=== PATIENT | male | born 1940 | race Caucasian/White ===

== ENCOUNTER → 2017-07-05 | Outpatient (REF) | payer MEDICARE ==
[~2017-07-05] MED LIST: ALLO100T PO; ATEN25TA PO; ATEN50TA2 PO; Albuterol/Ipratropium NEB; BACL10TA PO; BACL10TA2 PO; BENA20TA8 PO; Docusate Sod/Senna PO; FOLI1TAB4 PO; FURO20TA2 PO; FURO40TA2 PO; GABA-279 PO; HEPA500020 SQ; HYDR-3713 PO; INDO25CA PO; INDO50CA PO; MILKSUS PO; NEUR300C PO; OXYC15TA66 PO; OXYC1TAB23 PO; PANT40TA2 PO; PERCOCET PO; POTA10CA PO; PROT1TAB2 PO; SUCR1SS PO; TENO1TAB4 PO; TUMS500C PO; Thiamine Hcl PO; VITMTA PO
[2017-07-05 17:45] LABS: FOLATE 16.7 NG/ML; VITAMIN B12 LEVEL 316 PG/ML
[2017-07-05 17:51] LABS: ALBUMIN 3.7 GM/DL (3.2-5.2); ALBUMIN/GLOBULIN RATIO 1.06 (1.00-1.93); ALKALINE PHOSPHATASE 98 U/L (45-117); ALT/SGPT 32 U/L (12-78); ANION GAP 10 MEQ/L (8-16); AST/SGOT 22 U/L (15-37); BILIRUBIN,TOTAL 0.7 MG/DL (0.2-1.0); BLOOD UREA NITROGEN 16 MG/DL (7-18); CALCIUM LEVEL 8.9 MG/DL (8.8-10.2); CARBON DIOXIDE LEVEL 24 MEQ/L (21-32); CHLORIDE LEVEL 107 MEQ/L (98-107); CHOLESTEROL LEVEL 140 MG/DL (<200); CREATININE FOR GFR 0.87 MG/DL (0.70-1.30); FREE T4 0.91 NG/DL (0.76-1.46); GLOMERULAR FILTRATION RATE > 60.0 (>42); GLUCOSE, FASTING 97 MG/DL (83-110); MAGNESIUM LEVEL 1.9 MG/DL (1.8-2.4); POTASSIUM SERUM 3.3 MEQ/L (3.5-5.1); SODIUM LEVEL 141 MEQ/L (136-145); TOTAL PROTEIN 7.2 GM/DL (6.4-8.2); TRIGLYCERIDES LEVEL 71 MG/DL (<150); URIC ACID 8.2 MG/DL (3.5-7.2)
[2017-07-05 18:02] LABS: BASO # 0.1 10^3/uL (0.0-0.2); BASO % 1.2 % (0.0-1.0); EOS # 0.1 10^3/uL (0.0-0.50); EOS % 1.5 % (0.0-3.0); IMMATURE GRANULOCYTE % 0.8 % (0-0); LYMPH # 1.6 10^3/uL (1.5-4.5); LYMPH % 26.9 % (24.0-44.0); MEAN CORPUSCULAR HEMOGLOBIN 35.1 pg (27.0-33.0); MEAN CORPUSCULAR HGB CONC 33.4 g/dl (32.0-36.5); MEAN CORPUSCULAR VOLUME 104.9 fl (80.0-96.0); MONO # 0.9 10^3/uL (0.0-0.8); MONO % 15.2 % (0.0-5.0); NEUTROPHILS # 3.3 10^3/uL (1.8-7.7); NEUTROPHILS % 54.4 % (36.0-66.0); PLATELET COUNT, AUTOMATED 245 10^3/uL (150-450); RED CELL DISTRIBUTION WIDTH 13.8 % (11.5-14.5)
[2017-07-05 18:07] LABS: ADD MORPHOLOGY? NO
[2017-07-06 20:02] LABS: CALCIUM OXALATE CRYSTALS SMALL
== END ==
LOC: M SFHCCAPE 09:27
PROVIDERS: ATTEND Physician Assistant
DX: E78.5 Hyperlipidemia, unspecified (principal); F10.10 Alcohol abuse, uncomplicated; M10.9 Gout, unspecified; I10 Essential (primary) hypertension; Z12.5 Encounter for screening for malignant neoplasm of prostate; E55.9 Vitamin D deficiency, unspecified
CPT/HCPCS: 80053; 80061; 81001; 82306; 82607; 82746; 83735; 84439; 84443; 84550; 85025; G0103; G0463

== ENCOUNTER → 2018-01-31 | Outpatient (REF) | payer MEDICARE ==
[2018-01-31 17:19] LABS: BASO # 0.1 10^3/uL (0.0-0.2); BASO % 1.2 % (0.0-1.0); EOS # 0.2 10^3/uL (0.0-0.50); EOS % 3.1 % (0.0-3.0); HEMATOCRIT 39.4 % (42.0-52.0); IMMATURE GRANULOCYTE % 0.9 % (0-3.0); LYMPH # 2.1 10^3/uL (1.5-4.5); LYMPH % 27.6 % (24.0-44.0); MEAN CORPUSCULAR HEMOGLOBIN 34.1 pg (27.0-33.0); MEAN CORPUSCULAR VOLUME 103.4 fl (80.0-96.0); MONO # 1.1 10^3/uL (0.0-0.8); MONO % 13.7 % (0.0-5.0); NEUTROPHILS # 4.1 10^3/uL (1.8-7.7); NEUTROPHILS % 53.5 % (36.0-66.0); PLATELET COUNT, AUTOMATED 287 10^3/uL (150-450); RED BLOOD COUNT 3.81 10^6/uL (4.30-6.10); RED CELL DISTRIBUTION WIDTH 13.9 % (11.5-14.5); WHITE BLOOD COUNT 7.7 10^3/uL (4.0-10.0)
[2018-01-31 18:08] LABS: ALBUMIN 3.9 GM/DL (3.2-5.2); ALBUMIN/GLOBULIN RATIO 1.08 (1.00-1.93); ALKALINE PHOSPHATASE 88 U/L (45-117); ALT/SGPT 15 U/L (12-78); ANION GAP 9 MEQ/L (8-16); AST/SGOT 13 U/L (7-37); BILIRUBIN,TOTAL 0.6 MG/DL (0.2-1.0); BLOOD UREA NITROGEN 10 MG/DL (7-18); CALCIUM LEVEL 8.8 MG/DL (8.8-10.2); CARBON DIOXIDE LEVEL 28 MEQ/L (21-32); CHLORIDE LEVEL 103 MEQ/L (98-107); CREATININE FOR GFR 0.93 MG/DL (0.70-1.30); GLOMERULAR FILTRATION RATE > 60.0 (>42); GLUCOSE, FASTING 89 MG/DL (70-100); POTASSIUM SERUM 3.9 MEQ/L (3.5-5.1); SODIUM LEVEL 140 MEQ/L (136-145); TOTAL PROTEIN 7.5 GM/DL (6.4-8.2); URIC ACID 7.7 MG/DL (3.5-7.2)
== END ==
LOC: M SFHCCAPE 10:35
DX: F10.10 Alcohol abuse, uncomplicated (principal); I10 Essential (primary) hypertension; M10.9 Gout, unspecified
CPT/HCPCS: 84550

== ENCOUNTER 2018-06-23 10:37 | Emergency (ER) | payer MEDICARE | END 2018-06-23 12:56 | disposition home or self-care (01) | LOC: M ED 10:37 | DX: Z48.02 Encounter for removal of sutures (principal) | CPT/HCPCS: 99283 ==